=== PATIENT | female | born 1935 | race African-American/Black ===

== ENCOUNTER 2017-10-17 01:58 | Emergency (ER) | payer OTHER ==
[~2017-10-17] VITALS: Ht 162.6 cm; Wt 82.0 kg
[2017-10-17] MEDS ORDERED: SODIUM CHLORIDE 0.9% 1,000 ML IV ONE (02:10)
[2017-10-17 03:47] LABS: PROTHROMBIN TIME 10.7 sec (9.4-11.6)
[2017-10-17 03:51] LABS: CHLORIDE 105 mEq/L (98-107)
[2017-10-17 03:56] LABS: BASOPHILS % 0.4 % (0.0-2.0); EOSINOPHILS % 6.2 % (0.0-5.0); HEMATOCRIT. 34.7 % (36.0-48.0); HEMOGLOBIN. 11.1 g/dL (12.0-16.0); LYMPHOCYTES % 17.9 % (20.0-50.0); MEAN CORPUSCULAR HEMOGLOBIN 29.8 pg (28.0-32.0); MEAN PLATELET VOLUME 10.5 fl (7.4-10.4); MONOCYTES % 6.1 % (2.0-8.0); NEUTROPHILS % 69.4 % (40.0-76.0); PLATELET 208 x1000/uL (130-400); RED BLOOD CELL COUNT 3.73 mill/uL (4.2-5.4); RED CELL DISTRIBUTION WIDTH 16.7 % (11.6-14.6)
[2017-10-17] MEDS ORDERED: PANTOPRAZOLE SODIUM 40 MG/VIAL IV ONE (04:30)
[2017-10-17] MEDS ORDERED: MORPHINE SULFATE 2 MG/ML CPJ (NOT FOR IM USE) IV ONE (05:30)
[2017-10-17 06:47] VITALS: BP 165/81
== END 2017-10-17 07:36 | disposition short-term general hospital (02) ==
LOC: ER 01:58 → CANBEDREQ 07:52
DX: K92.2 Gastrointestinal hemorrhage, unspecified (principal); I10 Essential (primary) hypertension; E11.9 Type 2 diabetes mellitus without complications; Z86.73 Personal history of transient ischemic attack (TIA), and cerebral infarction without residual deficits; Z88.5 Allergy status to narcotic agent
CPT/HCPCS: 36415; 71045; 74176; 80053; 85025; 85610; 86850; 86900; 86901; 93005; 96374; 99291; C9113; J7030

== ENCOUNTER 2019-02-24 18:20 | Emergency (ER) | payer OTHER ==
[~2019-02-24] VITALS: Ht 167.6 cm; Wt 95.0 kg
[2019-02-24] MEDS ORDERED: SODIUM CHLORIDE 0.9% 1000ML BAG (SEPSIS BOLUS) IV ONE (18:45)
[2019-02-24] MEDS ORDERED: PIPERACILLIN/TAZ 3.375G PREMIX 50 ML IV ONE (18:45)
[2019-02-24] MEDS ORDERED: HYDROCORTISONE SOD SUCCINATE 100 MG/2 ML VIAL IV ONE (18:45)
[2019-02-24] MEDS ORDERED: VANCOMYCIN 1 G PREMIX 200 ML IV ONE (18:45)
[2019-02-24 19:36] LABS: BASOPHILS % 0.7 % (0.0-2.0); EOSINOPHILS % 2.6 % (0.0-5.0); HEMATOCRIT. 43.3 % (36.0-48.0); HEMOGLOBIN. 14.1 g/dL (12.0-16.0); LYMPHOCYTES % 14.5 % (20.0-50.0); MEAN CORPUSCULAR HEMOGLOBIN 29.6 pg (28.0-32.0); MEAN CORPUSCULAR VOLUME 91.2 fL (81.0-99.0); MONOCYTES % 4.9 % (2.0-8.0); NEUTROPHILS % 77.3 % (40.0-76.0); PLATELET 215 x1000/uL (130-400); RED BLOOD CELL COUNT 4.74 mill/uL (4.2-5.4)
[2019-02-24 19:41] LABS: PROTHROMBIN TIME 10.3 sec (9.6-11.0)
[2019-02-24 19:42] LABS: CHLORIDE 102 mEq/L (98-107)
[2019-02-24 19:46] LABS: CLARITY URINE CLOUDY (CLEAR); COLOR URINE YELLOW (YELLOW); KETONES URINE TRACE (NEGATIVE); LEUKOCYTE ESTERASE URINE 1+ (NEGATIVE); NITRITE URINE NEGATIVE (NEGATIVE); OCCULT BLOOD URINE 1+ (NEGATIVE); PH URINE 5.5 (4.5-8.0); PROTEIN URINE 1+ (NEGATIVE); SPECIFIC GRAVITY URINE 1.021 (1.005-1.030)
[2019-02-24 19:51] LABS: CREATINE KINASE 79 IU/L (26-192)
[2019-02-24 19:55] LABS: CREATINE KINASE MB FRACTION < 1.0 ng/mL (0.5-3.6)
[2019-02-25 01:52] VITALS: BP 141/62
== END 2019-02-25 01:55 | disposition short-term general hospital (02) ==
LOC: ER 18:20 → CANBEDREQ 23:02 → ER 02-25 01:55
DX: J18.9 Pneumonia, unspecified organism (principal); N39.0 Urinary tract infection, site not specified; E11.9 Type 2 diabetes mellitus without complications; I10 Essential (primary) hypertension; Z86.73 Personal history of transient ischemic attack (TIA), and cerebral infarction without residual deficits; Z88.8 Allergy status to other drugs, medicaments and biological substances; Z88.6 Allergy status to analgesic agent; Z90.710 Acquired absence of both cervix and uterus
CPT/HCPCS: 36415; 70450; 71045; 80053; 81003; 82550; 82553; 82962; 83605; 84145; 84443; 84484; 85025; 85610; 87040; 87086; 93005; 96365; 96368; 96375; 99285; J1720; J2543; J3370; J7030

== ENCOUNTER 2019-03-19 13:00 | Emergency (ER) | payer OTHER ==
[~2019-03-19] VITALS: Ht 172.7 cm; Wt 94.0 kg
[2019-03-19 14:00] LABS: CHLORIDE 97 mEq/L (98-107); PROTHROMBIN TIME 10.4 sec (9.6-11.0)
[2019-03-19] MEDS ORDERED: COCAINE 4% TOPICAL SOLN 4ML TOP ONE (14:45)
[2019-03-19 15:00] LABS: BASOPHILS % 0.9 % (0.0-2.0); EOSINOPHILS % 6.8 % (0.0-5.0); HEMATOCRIT. 34.4 % (36.0-48.0); HEMOGLOBIN. 11.3 g/dL (12.0-16.0); LYMPHOCYTES % 11.7 % (20.0-50.0); MEAN CORPUSCULAR HEMOGLOBIN 29.2 pg (28.0-32.0); MEAN CORPUSCULAR VOLUME 89.2 fL (81.0-99.0); MEAN PLATELET VOLUME 10.3 fl (7.4-10.4); MONOCYTES % 5.6 % (2.0-8.0); PLATELET 293 x1000/uL (130-400); RED BLOOD CELL COUNT 3.86 mill/uL (4.2-5.4); RED CELL DISTRIBUTION WIDTH 16.3 % (11.6-14.6)
[2019-03-19 15:09] LABS: PARTIAL THROMBOPLASTIN TIME 31.5 sec (23.4-31.0); PROTHROMBIN TIME 10.8 sec (9.6-11.0)
[2019-03-19 16:01] VITALS: BP 135/74
[2019-03-19] MEDS ORDERED: OXYMETAZOLINE HCL NASAL SPRAY 15ML BOTHNSTRLS SCH (21:00)
== END 2019-03-19 16:30 | disposition short-term general hospital (02) ==
LOC: ER 13:11
DX: R04.0 Epistaxis (principal); E11.9 Type 2 diabetes mellitus without complications; E78.00 Pure hypercholesterolemia, unspecified; I10 Essential (primary) hypertension; Z88.6 Allergy status to analgesic agent; Z88.8 Allergy status to other drugs, medicaments and biological substances; Z86.73 Personal history of transient ischemic attack (TIA), and cerebral infarction without residual deficits
CPT/HCPCS: 36415; 71045; 82962; 86850; 86900; 99285

== ENCOUNTER 2019-09-07 15:13 | Emergency (ER) | payer OTHER ==
[~2019-09-07] VITALS: Ht 165.1 cm; Wt 82.0 kg
[2019-09-07] MEDS ORDERED: DIATR MEGLU/DIATRIZOATE SOLN 30ML ONE (17:18)
[2019-09-07 20:00] VITALS: BP 140/60
== END 2019-09-07 20:32 | disposition home or self-care (01) ==
LOC: ER 15:13
DX: K94.29 Other complications of gastrostomy (principal); E11.9 Type 2 diabetes mellitus without complications; E78.00 Pure hypercholesterolemia, unspecified; I10 Essential (primary) hypertension; I69.351 Hemiplegia and hemiparesis following cerebral infarction affecting right dominant side; Z88.5 Allergy status to narcotic agent; Y83.3 Surgical operation with formation of external stoma as the cause of abnormal reaction of the patient, or of later complication, without mention of misadventure at the time of the procedure; Y92.128 Other place in nursing home as the place of occurrence of the external cause
CPT/HCPCS: 43762; 74018; 99284; Q9963; 99283

== ENCOUNTER 2019-10-01 14:10 | Inpatient (IN) | payer OTHER ==
[~2019-10-01] VITALS: Ht 162.6 cm; Wt 76.7 kg
[2019-10-01] MEDS ORDERED: ACETAMINOPHEN 650MG SUPP PR STA (14:20)
[2019-10-01 16:00] LABS: BASOPHILS % 1.1 % (0.0-2.0); EOSINOPHILS % 4.9 % (0.0-5.0); HEMATOCRIT. 31.2 % (36.0-48.0); LYMPHOCYTES % 18.8 % (20.0-50.0); MEAN CORPUSCULAR HEMOGLOBIN 26.9 pg (28.0-32.0); MEAN CORPUSCULAR VOLUME 83.9 fL (81.0-99.0); MEAN PLATELET VOLUME 11.4 fl (7.4-10.4); MONOCYTES % 6.1 % (2.0-8.0); NEUTROPHILS % 69.1 % (40.0-76.0); PLATELET 227 x1000/uL (130-400); RED BLOOD CELL COUNT 3.72 mill/uL (4.2-5.4); RED CELL DISTRIBUTION WIDTH 16.3 % (11.6-14.6)
[2019-10-01 16:05] LABS: PROTHROMBIN TIME 10.6 sec (9.6-11.0)
[2019-10-01 16:06] LABS: CHLORIDE 97 mEq/L (98-107)
[2019-10-01] MEDS ORDERED: PANTOPRAZOLE SODIUM 40 MG/VIAL IV ONE (18:15)
[2019-10-01] MEDS ORDERED: DOCUSATE SODIUM 100MG CAPSULE PO PRN (20:00)
[2019-10-01] MEDS ORDERED: MAGNESIUM/ALUMINUM HYDROXIDE/SIMETHICONE 30ML UDC PO PRN (20:00)
[2019-10-01] MEDS ORDERED: PANTOPRAZOLE SODIUM 40 MG/VIAL IV SCH (20:00)
[2019-10-01] MEDS ORDERED: GUAIFENESIN 200MG/10ML SUGAR FREE UDC PO PRN (20:00)
[2019-10-01] MEDS ORDERED: ACETAMINOPHEN 325MG TABLET PO PRN ×2 (20:00)
[2019-10-01] MEDS ORDERED: ACETAMINOPHEN 650MG/20.3ML UDC GT PRN ×2 (20:00)
[2019-10-01] MEDS ORDERED: ACETAMINOPHEN 650MG SUPP PR PRN ×2 (20:00)
[2019-10-01] MEDS ORDERED: ONDANSETRON HCL 4MG/2ML INJ IV PRN (20:00)
[2019-10-01] MEDS ORDERED: EZET10TA13 GT (20:49)
[2019-10-01] MEDS ORDERED: CLOP75TA4 GT (20:49)
[2019-10-01] MEDS ORDERED: METO25TA6 GT (20:49)
[2019-10-01] MEDS ORDERED: FAMO-135 GT (20:49)
[2019-10-01] MEDS ORDERED: POTA-9 GT (20:49)
[2019-10-01] MEDS ORDERED: LOSA25TA26 GT (20:49)
[2019-10-01 21:30] VITALS: BP 120/43
[2019-10-01 22:01] LABS: CLARITY URINE CLEAR (CLEAR); COLOR URINE YELLOW (YELLOW); KETONES URINE NEGATIVE (NEGATIVE); LEUKOCYTE ESTERASE URINE TRACE (NEGATIVE); NITRITE URINE NEGATIVE (NEGATIVE); OCCULT BLOOD URINE NEGATIVE (NEGATIVE); PROTEIN URINE NEGATIVE (NEGATIVE); SPECIFIC GRAVITY URINE 1.019 (1.005-1.030); UROBILINOGEN URINE 0.2 E.U./dL (0.2-1.0)
[2019-10-01] MEDS ORDERED: FERR325T23 GT (22:14)
[2019-10-01] MEDS ORDERED: ASCO-339 GT (22:14)
[2019-10-01] MEDS ORDERED: BUDE0.5A3 IH (22:14)
[2019-10-01] MEDS ORDERED: ARFO15VI2 IH (22:14)
[2019-10-01] MEDS ORDERED: INSLIS SUBCUT (22:14)
[2019-10-01] MEDS: DEXT 5%/0.45% NACL 1000ML 1,000 ML IV SCH (22:53)
[2019-10-01] MEDS: SODIUM CHLORIDE 0.9% INJ 3ML FLUSH IVF SCH (22:54)
[2019-10-02 00:45] VITALS: BP 173/64
[2019-10-02 01:05] LABS: HEMOGLOBIN 10.5 g/dL (12.0-16.0)
[2019-10-02 04:00] VITALS: BP 117/56
[2019-10-02] MEDS: SODIUM CHLORIDE 0.9% INJ 3ML FLUSH IVF SCH ×3 (06:17→23:14)
[2019-10-02 08:00] VITALS: BP 136/64
[2019-10-02] MEDS ORDERED: DEXTROSE 50% WATER 50ML SYRINGE IV PRN (10:30)
[2019-10-02] MEDS: PANTOPRAZOLE SODIUM 40 MG/VIAL IV SCH (10:48)
[2019-10-02] MEDS: DEXT 5%/0.45% NACL 1000ML 1,000 ML IV SCH ×2 (10:52→22:26)
[2019-10-02 12:00] VITALS: BP 116/51
[2019-10-02 12:27] LABS: CHLORIDE 98 mEq/L (98-107)
[2019-10-02 12:30] LABS: BASOPHILS % 0.3 % (0.0-2.0); EOSINOPHILS % 0.2 % (0.0-5.0); HEMATOCRIT. 27.8 % (36.0-48.0); HEMOGLOBIN. 8.8 g/dL (12.0-16.0); LYMPHOCYTES % 8.4 % (20.0-50.0); MEAN CORPUSCULAR HEMOGLOBIN 26.7 pg (28.0-32.0); MEAN CORPUSCULAR VOLUME 84.2 fL (81.0-99.0); MEAN PLATELET VOLUME 11.2 fl (7.4-10.4); MONOCYTES % 5.7 % (2.0-8.0); NEUTROPHILS % 85.4 % (40.0-76.0); PLATELET 211 x1000/uL (130-400); RED CELL DISTRIBUTION WIDTH 16.6 % (11.6-14.6)
[2019-10-02 12:36] LABS: HDL CHOLESTEROL 35 mg/dL (40-59)
[2019-10-02 12:46] LABS: LDL CHOLESTEROL 90 mg/dL (5-100)
[2019-10-02] MEDS: BLOOD SUGAR DIAGNOSTIC STRIP TEST SCH ×3 (13:29→21:00)
[2019-10-02] MEDS: INSULIN LISPRO 100 UNITS/ML SUBCUT SCH ×3 (13:36→23:14)
[2019-10-02] MEDS: FUROSEMIDE 40MG/4ML VIAL IVP SCH (13:37)
[2019-10-02 16:00] VITALS: BP 108/48
[2019-10-02 20:00] VITALS: BP 118/52
[2019-10-03] VITALS: BP 114/41
[2019-10-03 04:00] VITALS: BP 146/50
[2019-10-03] MEDS: SODIUM CHLORIDE 0.9% INJ 3ML FLUSH IVF SCH ×3 (06:20→22:00)
[2019-10-03] MEDS: BLOOD SUGAR DIAGNOSTIC STRIP TEST SCH ×4 (07:56→21:00)
[2019-10-03 08:00] VITALS: BP 128/51
[2019-10-03] MEDS ORDERED: VANCOMYCIN 1500MG in DEXTROSE 5% WATER 250ML IV SCH (09:00)
[2019-10-03] MEDS: FUROSEMIDE 40MG/4ML VIAL IVP SCH (09:32)
[2019-10-03] MEDS: PANTOPRAZOLE SODIUM 40 MG/VIAL IV SCH (09:32)
[2019-10-03] MEDS: INSULIN LISPRO 100 UNITS/ML SUBCUT SCH ×4 (09:32→21:00)
[2019-10-03 12:06] VITALS: BP 127/56
[2019-10-03] MEDS ORDERED: IPRATROPIUM/ALBUTEROL 0.5-3(2.5)MG/3ML NEB HHN PRN (16:30)
[2019-10-03 18:28] LABS: BASOPHILS % 0.8 % (0.0-2.0); EOSINOPHILS % 5.2 % (0.0-5.0); HEMOGLOBIN. 8.4 g/dL (12.0-16.0); LYMPHOCYTES % 17.5 % (20.0-50.0); MEAN CORPUSCULAR HEMOGLOBIN 27.1 pg (28.0-32.0); MEAN CORPUSCULAR VOLUME 84.2 fL (81.0-99.0); MEAN PLATELET VOLUME 10.8 fl (7.4-10.4); MONOCYTES % 7.1 % (2.0-8.0); NEUTROPHILS % 69.4 % (40.0-76.0); PLATELET 190 x1000/uL (130-400); RED BLOOD CELL COUNT 3.09 mill/uL (4.2-5.4); RED CELL DISTRIBUTION WIDTH 16.3 % (11.6-14.6)
[2019-10-03 18:32] LABS: CHLORIDE 101 mEq/L (98-107)
[2019-10-03] MEDS ORDERED: DILTIAZEM HCL 5MG/ML 5ML VIAL IV PRN (21:45)
[2019-10-03] MEDS: DEXT 5%/0.45% NACL 1000ML 1,000 ML IV SCH (22:56)
[2019-10-04] VITALS (11 sets, daily range): BP systolic 92–130; BP diastolic 41–67
[2019-10-04] MEDS ORDERED: DIGOXIN 500MCG/2ML AMP IV SCH (00:30)
[2019-10-04] MEDS ORDERED: DILTIAZEM HCL 125 MG in DEXT 5% WATER 100 ML IV SCH (01:00)
[2019-10-04] MEDS: DEXT 5%/0.45% NACL 1000ML 1,000 ML IV SCH ×2 (02:06→18:02)
[2019-10-04 06:30] LABS: BASOPHILS % 0.6 % (0.0-2.0); EOSINOPHILS % 3.5 % (0.0-5.0); HEMATOCRIT. 26.3 % (36.0-48.0); HEMOGLOBIN. 8.6 g/dL (12.0-16.0); LYMPHOCYTES % 14.1 % (20.0-50.0); MEAN CORPUSCULAR HEMOGLOBIN 27.4 pg (28.0-32.0); MEAN CORPUSCULAR VOLUME 83.8 fL (81.0-99.0); MEAN PLATELET VOLUME 11.2 fl (7.4-10.4); NEUTROPHILS % 75.8 % (40.0-76.0); PLATELET 220 x1000/uL (130-400); RED BLOOD CELL COUNT 3.13 mill/uL (4.2-5.4); RED CELL DISTRIBUTION WIDTH 16.4 % (11.6-14.6)
[2019-10-04 06:59] LABS: CHLORIDE 100 mEq/L (98-107)
[2019-10-04] MEDS: BLOOD SUGAR DIAGNOSTIC STRIP TEST SCH ×4 (07:30→20:05)
[2019-10-04] MEDS: FUROSEMIDE 40MG/4ML VIAL IVP SCH (09:00)
[2019-10-04] MEDS: PANTOPRAZOLE SODIUM 40 MG/VIAL IV SCH (09:05)
[2019-10-04] MEDS: INSULIN LISPRO 100 UNITS/ML SUBCUT SCH ×4 (09:05→20:06)
[2019-10-04] MEDS ORDERED: VANCOMYCIN 1,000 MG in DEXT 5% WATER 250 ML IV SCH (10:00)
[2019-10-04] MEDS ORDERED: POTASSIUM CHLORIDE 20MEQ TABLET SR PO NR (10:00)
[2019-10-04] MEDS ORDERED: VANCOMYCIN 750 MG PREMIX 150 ML IV SCH ×2 (11:00→13:00)
[2019-10-04] MEDS: SODIUM CHLORIDE 0.9% INJ 3ML FLUSH IVF SCH (14:11)
[2019-10-04] MEDS ORDERED: DIGOXIN 500MCG/2ML AMP IV NR (16:30)
== END 2019-10-04 21:58 | disposition short-term general hospital (02) | DRG 377 ==
LOC: ER 14:10 → EDBEDREQTM 18:07 → EDBEDREQSVC 18:07 → EDBEDREQ 18:07 → ENRESERV 18:45 → 7WST 21:19 → 5WST 10-03 16:38 → 5EST 10-04 01:06
PROVIDERS: ADMIT Family Medicine; ATTEND Family Medicine
DX: K92.1 Melena (principal); R53.2 Functional quadriplegia; R78.81 Bacteremia; R47.01 Aphasia; J84.9 Interstitial pulmonary disease, unspecified; I69.359 Hemiplegia and hemiparesis following cerebral infarction affecting unspecified side; Z20.828 Contact with and (suspected) exposure to other viral communicable diseases; B95.7 Other staphylococcus as the cause of diseases classified elsewhere; R47.02 Dysphasia; I48.91 Unspecified atrial fibrillation; D64.9 Anemia, unspecified; I11.9 Hypertensive heart disease without heart failure; R82.71 Bacteriuria; R13.10 Dysphagia, unspecified; E11.9 Type 2 diabetes mellitus without complications; E78.5 Hyperlipidemia, unspecified; Z93.1 Gastrostomy status; Z74.01 Bed confinement status; Z88.8 Allergy status to other drugs, medicaments and biological substances; Z88.5 Allergy status to narcotic agent; Z88.6 Allergy status to analgesic agent
CPT/HCPCS: 36415; 71045; 80048; 80053; 80061; 81003; 82270; 82962; 83036; 83605; 83615; 84484; 85014; 85018; 85025; 86850; 86900; 87635; 93005; 96374; 99285; C9113; J1160; J1815; J1940; J3370; J3490; J7060

== ENCOUNTER 2020-01-09 15:24 | Emergency (ER) | payer OTHER ==
[~2020-01-09] VITALS: Ht 162.6 cm; Wt 70.0 kg
[~2020-01-09 15:24] MED LIST: ARFO15VI2 IH; ASCO-339 GT; BUDE0.5A3 IH; CLOP75TA4 GT; EZET10TA13 GT; FAMO-135 GT; FERR325T23 GT; INSLIS SUBCUT; LOSA25TA26 GT; METO25TA6 GT; POTA-9 GT
[2020-01-09 18:15] LABS: HEMATOCRIT. 32.6 % (36.0-48.0); HEMOGLOBIN. 10.2 g/dL (12.0-16.0); MEAN CORPUSCULAR HEMOGLOBIN 24.7 pg (28.0-32.0); MEAN CORPUSCULAR VOLUME 78.9 fL (81.0-99.0); MEAN PLATELET VOLUME 9.9 fl (7.4-10.4); PLATELET 232 x1000/uL (130-400); RED BLOOD CELL COUNT 4.13 mill/uL (4.2-5.4); RED CELL DISTRIBUTION WIDTH 20.3 % (11.6-14.6)
[2020-01-09 18:22] LABS: CHLORIDE 99 mEq/L (98-107)
[2020-01-09 18:24] LABS: CLARITY URINE CLEAR (CLEAR); COLOR URINE YELLOW (YELLOW); KETONES URINE NEGATIVE (NEGATIVE); LEUKOCYTE ESTERASE URINE NEGATIVE (NEGATIVE); NITRITE URINE NEGATIVE (NEGATIVE); OCCULT BLOOD URINE NEGATIVE (NEGATIVE); PROTEIN URINE NEGATIVE (NEGATIVE); SPECIFIC GRAVITY URINE 1.017 (1.005-1.030)
[2020-01-09 18:27] LABS: INR 1.1; PROTHROMBIN TIME 11.4 sec (9.6-11.0)
[2020-01-09 18:57] LABS: PLATELET ESTIMATE NORMAL
[2020-01-09] MEDS ORDERED: CEFTRIAXONE 1 G PREMIX 50 ML IV ONE (19:15)
[2020-01-09] MEDS ORDERED: VANCOMYCIN 750 MG PREMIX 150 ML IV SCH (19:15)
[2020-01-09] MEDS ORDERED: AZITHROMYCIN 500 MG in DEXT 5% WATER 250 ML IV SCH (19:15)
[2020-01-09 20:18] VITALS: BP 114/73
== END 2020-01-09 20:42 | disposition short-term general hospital (02) ==
LOC: ER 15:24 → CANBEDREQ 19:37 → ER 20:42
DX: R53.1 Weakness (principal); R41.82 Altered mental status, unspecified; D72.829 Elevated white blood cell count, unspecified; E11.65 Type 2 diabetes mellitus with hyperglycemia; I48.91 Unspecified atrial fibrillation; R91.8 Other nonspecific abnormal finding of lung field; R94.39 Abnormal result of other cardiovascular function study; Z03.818 Encounter for observation for suspected exposure to other biological agents ruled out; Z86.73 Personal history of transient ischemic attack (TIA), and cerebral infarction without residual deficits; Z79.01 Long term (current) use of anticoagulants; Z88.5 Allergy status to narcotic agent; Z79.4 Long term (current) use of insulin; Z88.8 Allergy status to other drugs, medicaments and biological substances
CPT/HCPCS: 36415; 70450; 71045; 80053; 81003; 83605; 83690; 83880; 84484; 85025; 85610; 86850; 86900; 86901; 87040; 87635; 93005; 96365; 99285; C9803; J0456; J0696; J3370; J7060